=== PATIENT | female | born 1950 | race African-American/Black ===

== ENCOUNTER 2022-06-20 16:33 | Inpatient (IN) | payer SELFPAY ==
[~2022-06-20] VITALS: Ht 167.6 cm; Wt 72.6 kg
[2022-06-20 17:42] LABS: BASOPHILS % 0.4 % (0.0-2.0); EOSINOPHILS % 5.5 % (0.0-5.0); HEMATOCRIT. 32.1 % (36.0-48.0); HEMOGLOBIN. 10.6 g/dL (12.0-16.0); LYMPHOCYTES % 18.6 % (20.0-50.0); MEAN CORPUSCULAR HEMOGLOBIN 29.1 pg (28.0-32.0); MEAN CORPUSCULAR VOLUME 88.1 fL (81.0-99.0); MEAN PLATELET VOLUME 7.7 fl (7.4-10.4); NEUTROPHILS % 67.5 % (40.0-76.0); PLATELET 225 x1000/uL (130-400); RED BLOOD CELL COUNT 3.65 mill/uL (4.2-5.4); RED CELL DISTRIBUTION WIDTH 14.5 % (11.6-14.6)
[2022-06-20 17:48] LABS: CHLORIDE 109 mEq/L (98-107)
[2022-06-20] MEDS ORDERED: ASPIRIN 81MG TABLET PO NR (18:30)
[2022-06-20] MEDS ORDERED: ASPIRIN 81MG TABLET PO ONE (18:30)
[2022-06-20] MEDS: HYDRALAZINE 20MG/ML VIAL IV PRN (21:28)
[2022-06-20] MEDS ORDERED: HYDRALAZINE 20MG/ML VIAL IV PRN (21:30)
[2022-06-20] MEDS ORDERED: HYDRALAZINE 20MG/ML VIAL IV ONE (22:15)
[2022-06-20 22:58] VITALS: BP 174/83
[2022-06-21 04:00] VITALS: BP 169/88
[2022-06-21 08:00] VITALS: BP 145/85
[2022-06-21] MEDS ORDERED: ONDANSETRON HCL 4MG/2ML INJ IV PRN (10:00)
[2022-06-21] MEDS ORDERED: DIPHENHYDRAMINE 50MG/ML VIAL IV PRN (10:00)
[2022-06-21] MEDS ORDERED: IPRATROPIUM/ALBUTEROL 0.5-3(2.5)MG/3ML NEB HHN PRN (10:00)
[2022-06-21] MEDS ORDERED: ACETAMINOPHEN 325MG TABLET PO PRN (10:00)
[2022-06-21] MEDS: AMLODIPINE 5MG TABLET PO SCH (10:17)
[2022-06-21 12:00] VITALS: BP 143/81
[2022-06-21 16:00] VITALS: BP 139/81
[2022-06-21 20:00] VITALS: BP 158/84
[2022-06-22] VITALS: BP 162/90
[2022-06-22] MEDS: CLONIDINE 0.1MG TABLET PO PRN ×3 (01:20→19:45)
[2022-06-22 04:00] VITALS: BP 155/89
[2022-06-22 07:54] LABS: CHLORIDE 107 mEq/L (98-107)
[2022-06-22 08:00] VITALS: BP 160/94
[2022-06-22 08:10] LABS: BASOPHILS % 0.5 % (0.0-2.0); EOSINOPHILS % 5.7 % (0.0-5.0); HEMATOCRIT. 35.4 % (36.0-48.0); HEMOGLOBIN. 11.8 g/dL (12.0-16.0); LYMPHOCYTES % 22.9 % (20.0-50.0); MEAN CORPUSCULAR HEMOGLOBIN 28.7 pg (28.0-32.0); MEAN CORPUSCULAR VOLUME 86.2 fL (81.0-99.0); MEAN PLATELET VOLUME 8.1 fl (7.4-10.4); MONOCYTES % 8.2 % (2.0-8.0); NEUTROPHILS % 62.7 % (40.0-76.0); PLATELET 240 x1000/uL (130-400); RED BLOOD CELL COUNT 4.11 mill/uL (4.2-5.4); RED CELL DISTRIBUTION WIDTH 14.9 % (11.6-14.6)
[2022-06-22] MEDS: AMLODIPINE 5MG TABLET PO SCH (08:35)
[2022-06-22 12:00] VITALS: BP 160/99
[2022-06-22] MEDS: CLOPIDOGREL 75MG TABLET PO SCH (12:35)
[2022-06-22] MEDS: ASPIRIN 325MG EC TABLET PO SCH (12:35)
[2022-06-22 16:00] VITALS: BP 153/94
[2022-06-22 16:09] LABS: VITAMIN B12 SERUM 210 pg/mL (211-911)
[2022-06-22 20:00] VITALS: BP 169/92
[2022-06-22] MEDS ORDERED: IOHEXOL-350 100 ML BOTTLE ONE (23:10)
[2022-06-23] VITALS: BP_SYST 160; BP_SYST 162; BP_DIAS 90
[2022-06-23] MEDS: ATORVASTATIN CALCIUM 40MG TABLET PO SCH ×2 (00:36→21:35)
[2022-06-23] MEDS: HYDRALAZINE 20MG/ML VIAL IV PRN ×2 (00:37→16:40)
[2022-06-23 04:00] VITALS: BP 135/83
[2022-06-23 06:28] LABS: BASOPHILS % 0.7 % (0.0-2.0); EOSINOPHILS % 3.9 % (0.0-5.0); HEMATOCRIT. 36.4 % (36.0-48.0); HEMOGLOBIN. 12.1 g/dL (12.0-16.0); LYMPHOCYTES % 22.4 % (20.0-50.0); MEAN CORPUSCULAR HEMOGLOBIN 29.2 pg (28.0-32.0); MEAN CORPUSCULAR VOLUME 87.9 fL (81.0-99.0); MEAN PLATELET VOLUME 7.8 fl (7.4-10.4); MONOCYTES % 10.2 % (2.0-8.0); NEUTROPHILS % 62.8 % (40.0-76.0); PLATELET 243 x1000/uL (130-400); RED BLOOD CELL COUNT 4.14 mill/uL (4.2-5.4); RED CELL DISTRIBUTION WIDTH 14.8 % (11.6-14.6)
[2022-06-23 06:54] LABS: CHLORIDE 108 mEq/L (98-107)
[2022-06-23 08:00] VITALS: BP 145/80
[2022-06-23] MEDS: CLOPIDOGREL 75MG TABLET PO SCH (08:57)
[2022-06-23] MEDS: AMLODIPINE 5MG TABLET PO SCH (08:57)
[2022-06-23] MEDS: ASPIRIN 325MG EC TABLET PO SCH (08:57)
[2022-06-23] MEDS: ENOXAPARIN 40MG/0.4ML SYR SUBCUT SCH (11:49)
[2022-06-23 12:00] VITALS: BP 143/73
[2022-06-23 16:00] VITALS: BP 166/96
[2022-06-23 20:00] VITALS: BP 156/78
[2022-06-24] VITALS: BP 149/77
[2022-06-24 04:00] VITALS: BP 153/77
[2022-06-24] MEDS ORDERED: CLOP75TA15 PO (06:43)
[2022-06-24] MEDS ORDERED: LIP40 PO (06:43)
[2022-06-24] MEDS ORDERED: AMLO5TAB88 PO (06:43)
[2022-06-24] MEDS ORDERED: ASPI-867 PO (06:43)
[2022-06-24 08:00] VITALS: BP 139/89
[2022-06-24] MEDS: AMLODIPINE 5MG TABLET PO SCH (09:08)
[2022-06-24] MEDS: ASPIRIN 325MG EC TABLET PO SCH (09:08)
[2022-06-24] MEDS: CLOPIDOGREL 75MG TABLET PO SCH (09:09)
[2022-06-24] MEDS: ENOXAPARIN 40MG/0.4ML SYR SUBCUT SCH (09:09)
[2022-06-24 12:00] VITALS: BP 140/86
[2022-06-24 17:38] VITALS: BP 158/87
== END 2022-06-24 19:15 | disposition home or self-care (01) | DRG 45 ==
LOC: ER 16:33 → EDBEDREQ 16:57 → 8WST 19:13 → EDBEDREQ 20:08 → EDBEDREQTM 20:08 → ENRESERV 20:53
PROVIDERS: ADMIT Internal Medicine; ATTEND Internal Medicine
DX: I63.9 Cerebral infarction, unspecified (principal); G92.9 Unspecified toxic encephalopathy; H53.461 Homonymous bilateral field defects, right side; G81.91 Hemiplegia, unspecified affecting right dominant side; R47.01 Aphasia; I48.91 Unspecified atrial fibrillation; I67.82 Cerebral ischemia; F03.90 Unspecified dementia, unspecified severity, without behavioral disturbance, psychotic disturbance, mood disturbance, and anxiety; Z20.822 Contact with and (suspected) exposure to COVID-19; I10 Essential (primary) hypertension; R47.81 Slurred speech; R47.1 Dysarthria and anarthria; Z79.01 Long term (current) use of anticoagulants; Z79.899 Other long term (current) drug therapy
CPT/HCPCS: 36415; 70496; 70498; 70551; 71045; 80048; 80053; 82607; 84443; 84484; 85025; 87426; 92610; 93005; 93306; 97110; 97116; 97162; 97166; 97530; 99291; J0360; J1650; Q9967

== ENCOUNTER 2023-04-06 07:22 | Emergency (ER) | payer BC ==
[~2023-04-06] VITALS: Ht 160 cm; Wt 56.7 kg
[~2023-04-06 07:22] MED LIST: AMLO5TAB88 PO; ASPI-867 PO; CLOP75TA15 PO; LIP40 PO
[2023-04-06] MEDS ORDERED: ACETAMINOPHEN 325MG TABLET PO STA (09:21)
[2023-04-06] MEDS ORDERED: GUAIFENESIN 600MG ER TABLET PO ONE (09:30)
[2023-04-06] MEDS ORDERED: ALBUTEROL (0.083%) 2.5MG/3ML NEB HHN ONE (09:30)
[2023-04-06 10:18] LABS: BASOPHILS % 0.5 % (0.0-2.0); EOSINOPHILS % 13.9 % (0.0-5.0); HEMATOCRIT. 36.7 % (36.0-48.0); HEMOGLOBIN. 12.4 g/dL (12.0-16.0); LYMPHOCYTES % 10.5 % (20.0-50.0); MEAN CORPUSCULAR HEMOGLOBIN 29.8 pg (28.0-32.0); MEAN CORPUSCULAR VOLUME 88.2 fL (81.0-99.0); MEAN PLATELET VOLUME 7.5 fl (7.4-10.4); MONOCYTES % 6.8 % (2.0-8.0); NEUTROPHILS % 68.3 % (40.0-76.0); PLATELET 242 x1000/uL (130-400); RED BLOOD CELL COUNT 4.16 mill/uL (4.2-5.4); RED CELL DISTRIBUTION WIDTH 14.4 % (11.6-14.6)
[2023-04-06 10:27] LABS: CHLORIDE 107 mEq/L (98-107)
[2023-04-06] MEDS ORDERED: ALBU6.7H15 INH (11:17)
[2023-04-06] MEDS ORDERED: ACET-2708 MT (11:17)
[2023-04-06] MEDS ORDERED: GUAI600T26 MT (11:17)
[2023-04-06 11:37] VITALS: BP 137/79
== END 2023-04-06 11:49 | disposition home or self-care (01) ==
LOC: ER 07:38
DX: J40 Bronchitis, not specified as acute or chronic (principal); I10 Essential (primary) hypertension; E11.9 Type 2 diabetes mellitus without complications; Z86.73 Personal history of transient ischemic attack (TIA), and cerebral infarction without residual deficits; Z20.822 Contact with and (suspected) exposure to COVID-19
CPT/HCPCS: 36415; 71045; 80053; 85025; 87426; 93005; 94640; 99285; C9803; Z7610